=== PATIENT | female | born 2000 | race Two or more races ===

== ENCOUNTER 2024-10-04 10:05 | Outpatient (CLI) | payer OTHER | END 2024-10-04 10:07 | disposition home or self-care (01) | LOC: PRENATAL 10:05 | PROVIDERS: ATTEND Obstetrics & Gynecology Maternal & Fetal Medicine | DX: O36.80X0 Pregnancy with inconclusive fetal viability, not applicable or unspecified (principal); Z96.82 Presence of neurostimulator; Z3A.12 12 weeks gestation of pregnancy ==

== ENCOUNTER 2024-11-30 08:05 | Outpatient (CLI) | payer OTHER | END 2024-11-30 08:06 | disposition home or self-care (01) | LOC: PRENATAL 08:05 | PROVIDERS: ATTEND Obstetrics & Gynecology Maternal & Fetal Medicine | DX: O44.00 Complete placenta previa NOS or without hemorrhage, unspecified trimester (principal); Z3A.21 21 weeks gestation of pregnancy ==

== ENCOUNTER → 2025-02-22 14:45 | Outpatient (CLI) | payer OTHER | END | disposition home or self-care (01) | LOC: PRENATAL 14:45 | PROVIDERS: ATTEND Obstetrics & Gynecology Maternal & Fetal Medicine | DX: O26.849 Uterine size-date discrepancy, unspecified trimester (principal); O36.8130 Decreased fetal movements, third trimester, not applicable or unspecified; Z3A.33 33 weeks gestation of pregnancy ==

== ENCOUNTER 2025-03-01 18:51 | Outpatient (CLI) | payer OTHER ==
[2025-03-01 19:27] VITALS: BP 131/91
[2025-03-01 20:11] LABS: BASO % 0.2 % (0.1-1.2); EOS # 0.18 (0.04-0.54); EOS % 1.9 % (0.7-7.0); LYMPH # 2.24 (1.18-3.74); LYMPH % 24.2 % (19.3-53.1); MEAN PLATELET VOLUME 11.00 fl (9.4-12.4); MONO # 0.64 (0.24-0.82); MONO % 6.9 % (4.7-12.5); NEUT # 6.16 (1.56-6.13); NEUT % 66.5 % (34.0-71.1); RED CELL DISTRIBUTION WIDTH 12.0 % (11.6-14.4); URINE APPEARANCE Clear; URINE BILIRRUBIN Negative (NEGATIVE); URINE BLOOD Negative; URINE COLOR Yellow; URINE GLUCOSE Negative (NEGATIVE); URINE KETONE Negative (NEGATIVE); URINE LEUKOCYTE Negative; URINE NITRATE Negative; URINE PROTEIN Negative (NEGATIVE); URINE UROBILINOGEN 0.2 E.U./dl
[2025-03-01 20:14] LABS: URINE BACTERIA 164.3 uL (0.0-1933); URINE EPITHELIAL CELLS 23.6 uL (0.0-38.8); URINE WBC 5.5 uL (0.0-23.2)
[2025-03-01 20:23] LABS: URINE CAST 0.00 uL (0.0-1.40); URINE RBC 0.4 uL (0.0-20.8)
[2025-03-01 20:59] LABS: ALT/SGPT 15.0 U/L (12-78); AST/SGOT 23.0 U/L (15-37); BILIRUBIN TOTAL 0.37 mg/dL (0.3-1.2); BUN CREA RATIO 12.0 (7.0-25.0); CREATININE SERUM 0.58 mg/dL (0.55-1.02); GFR 128.83; GLOBULINA 3.8 G/DL (2.4-3.5); GLUCOSE FASTING 85.0 mg/dL (65-100); OSMOLALITY SERUM 275.0 MOSM/KG (275-295)
[2025-03-01 22:30] LABS: INR 0.94
[2025-03-01] MEDS ORDERED: PRENATA CHEWAB1 EACH PO (22:47)
[2025-03-01 23:17] VITALS: BP 112/64
[2025-03-02] VITALS (7 sets, daily range): BP systolic 115–129; BP diastolic 64–87; O2SAT 99–100
== END 2025-03-02 19:20 | disposition home or self-care (01) ==
LOC: OBS/DEL 18:51
PROVIDERS: ATTEND Obstetrics & Gynecology
DX: O13.3 Gestational [pregnancy-induced] hypertension without significant proteinuria, third trimester (principal); Z3A.33 33 weeks gestation of pregnancy

== ENCOUNTER 2025-04-11 05:27 | Inpatient (IN) | payer OTHER ==
[~2025-04-11] VITALS: Ht 172.7 cm; Wt 3.2 kg
[~2025-04-11 05:27] MED LIST: PRENATA CHEWAB1 EACH PO
[2025-04-11] MEDS ORDERED: RINGERS SOLUTION,LACTATED 1,000 ML IV SCH (06:00)
[2025-04-11 06:05] VITALS: BP 146/87
[2025-04-11 06:40] LABS: URINE APPEARANCE Clear; URINE BILIRRUBIN Negative (NEGATIVE); URINE BLOOD Negative; URINE COLOR Yellow; URINE GLUCOSE Negative (NEGATIVE); URINE KETONE Negative (NEGATIVE); URINE LEUKOCYTE Negative; URINE NITRATE Negative; URINE PROTEIN Negative (NEGATIVE); URINE UROBILINOGEN 1.0 E.U./dl
[2025-04-11 06:41] LABS: URINE BACTERIA 257.9 uL (0.0-1933); URINE CAST 0.14 uL (0.0-1.40); URINE EPITHELIAL CELLS 36.8 uL (0.0-38.8); URINE RBC 2.0 uL (0.0-20.8); URINE WBC 9.6 uL (0.0-23.2)
[2025-04-11 07:13] LABS: BASO % 0.3 % (0.1-1.2); EOS # 0.11 (0.04-0.54); EOS % 1.5 % (0.7-7.0); LYMPH # 2.04 (1.18-3.74); LYMPH % 28.2 % (19.3-53.1); MEAN PLATELET VOLUME 11.90 fl (9.4-12.4); MONO # 0.52 (0.24-0.82); MONO % 7.2 % (4.7-12.5); NEUT # 4.53 (1.56-6.13); NEUT % 62.7 % (34.0-71.1); RED CELL DISTRIBUTION WIDTH 11.9 % (11.6-14.4)
[2025-04-11 07:38] LABS: INR 1.0
[2025-04-11 07:44] LABS: ALT/SGPT 19.0 U/L (12-78); AST/SGOT 19.0 U/L (15-37); BILIRUBIN TOTAL 0.49 mg/dL (0.3-1.2); BUN CREA RATIO 9.0 (7.0-25.0); CREATININE SERUM 0.74 mg/dL (0.55-1.02); GFR 97.25; GLOBULINA 3.7 G/DL (2.4-3.5); GLUCOSE FASTING 96.0 mg/dL (65-100); OSMOLALITY SERUM 277.0 MOSM/KG (275-295)
[2025-04-11 07:47] VITALS: BP 138/75
[2025-04-11] MEDS ORDERED: MISOPROSTOL 25 MCG/4 ML GEL.W.APPL VAG STA ×3 (08:19→19:58)
[2025-04-11 11:47] VITALS: BP 118/80; O2SAT 100
[2025-04-11 15:17] VITALS: BP 126/83
[2025-04-11] MEDS ORDERED: MISOPROSTOL 25 MCG/4 ML GEL.W.APPL ONE (19:37)
[2025-04-11 20:10] VITALS: BP 133/82
[2025-04-11 23:52] VITALS: BP 137/89
[2025-04-12] VITALS (7 sets, daily range): BP systolic 135–146; BP diastolic 61–91
[2025-04-12] MEDS ORDERED: OXYTOCIN 500 ML IV SCH (08:00)
[2025-04-12] MEDS ORDERED: MORPHINE SULFATE 4 MG/ML CARTRIDGE IV STA (09:59)
[2025-04-12] MEDS ORDERED: MORPHINE SULFATE 4 MG/ML CARTRIDGE IV ONE (16:00)
[2025-04-12] MEDS ORDERED: CHLORHEXIDINE GLUCONATE 120 ML BOTTLE TOP ONE (18:53)
[2025-04-12] MEDS ORDERED: OXYTOCIN 20 UNITS/1000ML RL PIGGYBAG IV ONE (18:53)
[2025-04-12] MEDS ORDERED: LIDOCAINE HCL 1% 10ML VIAL ONE (18:53)
[2025-04-12] MEDS ORDERED: ERYTHROMYCIN BASE OPHT 1GM EACH TUBE OP ONE ×2 (18:53→23:22)
[2025-04-12] MEDS ORDERED: OXYTOCIN 10 UNITS/ML VIAL ONE ×2 (19:24→23:22)
[2025-04-13] MEDS ORDERED: MORPHINE SULFATE 4 MG/ML CARTRIDGE IV PRN (01:30)
[2025-04-13] MEDS ORDERED: ERYTHROMYCIN BASE OPHT 1GM EACH TUBE OP ONE (01:30)
[2025-04-13] MEDS ORDERED: OXYTOCIN 1,000 ML IV SCH (01:30)
[2025-04-13] MEDS ORDERED: RINGERS SOLUTION,LACTATED 1,000 ML IV SCH (01:30)
[2025-04-13] MEDS ORDERED: OXYTOCIN 10 UNITS/ML VIAL ONE (03:56)
[2025-04-13 04:15] VITALS: BP 148/71
[2025-04-13 06:32] LABS: BASO % 0.1 % (0.1-1.2); EOS # 0.00 (0.04-0.54); EOS % 0.0 % (0.7-7.0); LYMPH # 1.26 (1.18-3.74); LYMPH % 8.2 % (19.3-53.1); MEAN PLATELET VOLUME 12.20 fl (9.4-12.4); MONO # 0.82 (0.24-0.82); MONO % 5.4 % (4.7-12.5); NEUT # 13.15 (1.56-6.13); NEUT % 85.8 % (34.0-71.1); RED CELL DISTRIBUTION WIDTH 12.1 % (11.6-14.4)
[2025-04-13 08:00] VITALS: BP 142/85
[2025-04-13] MEDS ORDERED: SIMETHICONE 125 MG CAPSULE PO SCH (09:00)
[2025-04-13] MEDS ORDERED: DOCUSATE SODIUM 100MG CAP PO SCH (09:00)
[2025-04-13 16:45] VITALS: BP 136/84
[2025-04-14] VITALS: BP 135/85
[2025-04-14 08:45] VITALS: BP 129/80
[2025-04-14 18:35] VITALS: BP 139/92
[2025-04-15 00:32] VITALS: BP 140/80
[2025-04-15 08:00] VITALS: BP 133/88
== END 2025-04-15 14:22 | disposition home or self-care (01) | DRG 788 ==
LOC: LDR 05:27 → OB/GYN 04-13 01:38
PROVIDERS: ADMIT Obstetrics & Gynecology; ATTEND Obstetrics & Gynecology
PROC: 3E0P7VZ Introduction of Hormone into Female Reproductive, Via Natural or Artificial Opening (ICD-10-PCS; 2025-04-11)
PROC: 4A1HXCZ Monitoring of Products of Conception, Cardiac Rate, External Approach (ICD-10-PCS; 2025-04-11)
PROC: 3E033VJ Introduction of Other Hormone into Peripheral Vein, Percutaneous Approach (ICD-10-PCS; 2025-04-12)
PROC: 10D00Z1 Extraction of Products of Conception, Low, Open Approach (ICD-10-PCS; principal; 2025-04-13)
DX: O62.1 Secondary uterine inertia (principal); O13.4 Gestational [pregnancy-induced] hypertension without significant proteinuria, complicating childbirth; Z3A.39 39 weeks gestation of pregnancy; Z37.0 Single live birth

== ENCOUNTER 2025-04-19 17:58 | Inpatient (IN) | payer OTHER ==
[~2025-04-19] VITALS: Ht 172.7 cm; Wt 101.6 kg
[2025-04-19] MEDS ORDERED: TRAMADOL HCL 50 MG TABLET PO ONE (19:30)
[2025-04-19 20:06] LABS: BASO % 0.2 % (0.1-1.2); EOS # 0.07 (0.04-0.54); EOS % 0.6 % (0.7-7.0); LYMPH # 1.52 (1.18-3.74); LYMPH % 13.3 % (19.3-53.1); MEAN PLATELET VOLUME 10.10 fl (9.4-12.4); MONO # 0.80 (0.24-0.82); MONO % 7.0 % (4.7-12.5); NEUT # 8.99 (1.56-6.13); NEUT % 78.6 % (34.0-71.1); RED CELL DISTRIBUTION WIDTH 11.9 % (11.6-14.4)
[2025-04-19 20:34] LABS: ALT/SGPT 24.0 U/L (12-78); AST/SGOT 19.0 U/L (15-37); BILIRUBIN TOTAL 0.55 mg/dL (0.3-1.2); BUN CREA RATIO 12.0 (7.0-25.0); CREATININE SERUM 0.75 mg/dL (0.55-1.02); GFR 95.76; GLOBULINA 4.2 G/DL (2.4-3.5); GLUCOSE FASTING 99.0 mg/dL (65-100); OSMOLALITY SERUM 284.0 MOSM/KG (275-295)
[2025-04-19] MEDS ORDERED: KETOROLAC TROMETHAMINE 30 MG VIAL ONE (22:26)
[2025-04-19] MEDS ORDERED: CIPROFLOXACIN IN 5 % DEXTROSE 400 MG/200 ML PIGGYBAG IV ONE ×2 (22:26→22:30)
[2025-04-19] MEDS ORDERED: KETOROLAC TROMETHAMINE 30 MG VIAL IV PRN (22:30)
[2025-04-20] MEDS ORDERED: KETOROLAC TROMETHAMINE 30 MG VIAL ONE (05:34)
[2025-04-20 12:05] VITALS: BP 148/90; O2SAT 99
[2025-04-20 12:52] VITALS: BP 140/80
[2025-04-20 16:00] VITALS: BP 130/80
[2025-04-20] MEDS ORDERED: CEFOXITIN SODIUM 2,000 MG VIAL IV SCH (21:00)
[2025-04-21 01:59] VITALS: BP 135/71
[2025-04-21 08:00] VITALS: BP 132/84
[2025-04-21 17:32] VITALS: BP 112/77
[2025-04-21 20:56] LABS: URINE APPEARANCE Clear; URINE BILIRRUBIN Negative (NEGATIVE); URINE BLOOD Large; URINE COLOR Yellow; URINE GLUCOSE Negative (NEGATIVE); URINE KETONE Negative (NEGATIVE); URINE LEUKOCYTE Moderate; URINE NITRATE Negative; URINE PROTEIN Negative (NEGATIVE); URINE UROBILINOGEN 1.0 E.U./dl
[2025-04-21 20:57] LABS: URINE BACTERIA 81.6 uL (0.0-1933); URINE EPITHELIAL CELLS 13.9 uL (0.0-38.8); URINE RBC 2351.9 uL (0.0-20.8); URINE WBC 401.1 uL (0.0-23.2)
[2025-04-21] MEDS ORDERED: VANCOMYCIN HCL 1,000 MG VIAL IV SCH (21:00)
[2025-04-21] MEDS ORDERED: CEFTRIAXONE SODIUM 2,000 MG VIAL IV SCH (21:00)
[2025-04-21 21:22] LABS: TYPE CELLS SQUAMOUS; URINE CAST 0.00 uL (0.0-1.40); URINE CRYSTALS FEW /HPF; URINE MUCUS SCANT
[2025-04-21 21:23] LABS: BUN CREA RATIO 19.0 (7.0-25.0); CREATININE SERUM 0.73 mg/dL (0.55-1.02); GFR 98.79; GLUCOSE FASTING 88.0 mg/dL (65-100); OSMOLALITY SERUM 285.0 MOSM/KG (275-295)
[2025-04-22 01:14] VITALS: BP 119/77
[2025-04-22 08:00] VITALS: BP 139/85
[2025-04-22 08:30] LABS: BASO % 0.3 % (0.1-1.2); EOS # 0.13 (0.04-0.54); EOS % 2.0 % (0.7-7.0); LYMPH # 2.04 (1.18-3.74); LYMPH % 30.7 % (19.3-53.1); MEAN PLATELET VOLUME 10.60 fl (9.4-12.4); MONO # 0.54 (0.24-0.82); MONO % 8.1 % (4.7-12.5); NEUT # 3.90 (1.56-6.13); NEUT % 58.7 % (34.0-71.1); RED CELL DISTRIBUTION WIDTH 11.9 % (11.6-14.4)
[2025-04-22 09:30] LABS: ALT/SGPT 21.0 U/L (12-78); AST/SGOT 17.0 U/L (15-37); BILIRUBIN TOTAL 0.54 mg/dL (0.3-1.2); BUN CREA RATIO 16.0 (7.0-25.0); CREATININE SERUM 0.86 mg/dL (0.55-1.02); GFR 81.77; GLOBULINA 3.7 G/DL (2.4-3.5); GLUCOSE FASTING 84.0 mg/dL (65-100); OSMOLALITY SERUM 285.0 MOSM/KG (275-295)
[2025-04-22 16:00] VITALS: BP 114/78
[2025-04-23 00:41] VITALS: BP 135/73
[2025-04-23 08:23] LABS: BUN CREA RATIO 13.0 (7.0-25.0); CREATININE SERUM 0.89 mg/dL (0.55-1.02); GFR 78.6; GLUCOSE FASTING 96.0 mg/dL (65-100); OSMOLALITY SERUM 285.0 MOSM/KG (275-295)
[2025-04-23 09:50] VITALS: BP 140/88
[2025-04-23 17:00] VITALS: BP 140/93
[2025-04-24 01:04] VITALS: BP 140/80
[2025-04-24 08:52] VITALS: BP 141/99
[2025-04-24 15:30] VITALS: BP 140/97
[2025-04-24] MEDS ORDERED: BISMUTH SUBSALICYLATE 524 MG/30 ML BLIST.PACK PO PRN (15:45)
[2025-04-24] MEDS ORDERED: LACTOBACILLUS ACIDOPHILUS 1 CAP CAP PO SCH (17:00)
[2025-04-24] MEDS ORDERED: VANCOMYCIN HCL 5 MG/ML REDILUIDO IV SCH (21:00)
[2025-04-25 00:10] VITALS: BP 145/92
[2025-04-25 08:21] VITALS: BP 139/90
[2025-04-25 08:53] LABS: BUN CREA RATIO 10.0 (7.0-25.0); CREATININE SERUM 0.87 mg/dL (0.55-1.02); GFR 80.69; GLUCOSE FASTING 90.0 mg/dL (65-100); OSMOLALITY SERUM 285.0 MOSM/KG (275-295)
[2025-04-25 16:00] VITALS: BP 148/89
[2025-04-26 00:25] VITALS: BP 124/76
[2025-04-26 08:27] VITALS: BP 139/80; BP 140/94
[2025-04-26 16:00] VITALS: BP 124/80
[2025-04-27 00:45] VITALS: BP 122/75
[2025-04-27 08:11] VITALS: BP 130/80
[2025-04-27 16:00] VITALS: BP 140/85
== END 2025-04-27 18:50 | disposition home or self-care (01) | DRG 769 ==
LOC: ER 17:58 → OB/GYN 04-20 11:02
PROVIDERS: General Practice; Internal Medicine Infectious Disease; ADMIT Obstetrics & Gynecology; ATTEND Obstetrics & Gynecology
PROC: 8E0ZXY6 Isolation (ICD-10-PCS; 2025-04-20)
PROC: BW21ZZZ Computerized Tomography (CT Scan) of Abdomen and Pelvis (ICD-10-PCS; 2025-04-24)
PROC: 0JBC0ZZ Excision of Pelvic Region Subcutaneous Tissue and Fascia, Open Approach (ICD-10-PCS; principal; 2025-04-27)
DX: O86.09 Infection of obstetric surgical wound, other surgical site (principal); B95.2 Enterococcus as the cause of diseases classified elsewhere